=== PATIENT | male | born 1975 | race Caucasian/White ===

== ENCOUNTER 2017-03-04 16:01 | Emergency (ER) | payer MEDICAID, OTHER ==
[~2017-03-04] VITALS: Ht 177.8 cm; Wt 75.0 kg
[~2017-03-04 16:01] MED LIST: CLON0.1T PO; ONDA8TAB10 PO
[2017-03-04 16:26] VITALS: BP 113/65; PULSE 74; RESP 16; O2SAT 100
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
[2017-03-04 17:58] VITALS: BP 102/63; PULSE 64; RESP 14; O2SAT 100
== END 2017-03-04 17:55 ==
LOC: SED 16:01
DX: S09.90XA Unspecified injury of head, initial encounter (principal); Y04.0XXA Assault by unarmed brawl or fight, initial encounter; Y93.9 Activity, unspecified; Y92.148 Other place in prison as the place of occurrence of the external cause; Y99.9 Unspecified external cause status